=== PATIENT | female | born 1975 | race Caucasian/White ===

== ENCOUNTER 2019-09-24 05:30 | Day surgery (SDC) | payer BC, SELFPAY ==
[~2019-09-24] VITALS: Ht 162.6 cm; Wt 60.3 kg
[2019-09-24] MEDS ORDERED: ONDANSETRON HCL 4 MG/2 ML VIAL IVP PRN ×2 (08:45→10:30)
[2019-09-24] MEDS ORDERED: OXYCODONE/ACETAMINOPHEN 5-325 TABLET PO PRN ×2 (10:30)
[2019-09-24] MEDS ORDERED: HYDROcodone/ACETAMIN 5-325 MG TAB (NORCO/ VICODIN) PO PRN (10:30)
[2019-09-24] MEDS ORDERED: NS 1000 ML IV.SOLN IV ONE (10:51)
[2019-09-24] MEDS ORDERED: fentaNYL CITRATE/PF 100 MCG/2 ML AMP ONE (10:51)
[2019-09-24] MEDS ORDERED: FUROSEMIDE 20 MG/2 ML VIAL ONE (10:51)
[2019-09-24] MEDS ORDERED: LIDOCAINE 2%, 20 ML MDV ONE (10:51)
[2019-09-24] MEDS ORDERED: NS IRRIG SOLN 1000 ML IR ONE (10:51)
[2019-09-24] MEDS ORDERED: BUPIVACAINE /PF 0.25% 30 ML VIAL INJ ONE ×2 (10:51)
[2019-09-24] MEDS ORDERED: WATER FOR IRRIGATION,STERILE 1,000 ML IRRIG.SOLN IR ONE (10:51)
[2019-09-24] MEDS ORDERED: SEVOFLURANE 15 MIN GAS INH ONE (10:51)
[2019-09-24] MEDS ORDERED: ONDANSETRON HCL 4 MG/2 ML VIAL ONE ×2 (10:51→12:49)
[2019-09-24] MEDS ORDERED: ROCURONIUM BROMIDE 10 MG/ML (ZEMURON) ONE (10:51)
[2019-09-24] MEDS ORDERED: CEFAZOLIN 2 GM IVPB PREMIX 50 ML IV ONE (10:51)
[2019-09-24] MEDS ORDERED: PROPOFOL 200MG/ 20ML VIAL (DIPRIVAN) IV ONE (10:51)
[2019-09-24] MEDS ORDERED: MIDAZOLAM HCL 5 MG/ML VIAL (VERSED) IV ONE (10:51)
[2019-09-24] MEDS ORDERED: LR 1,000 ML IV.SOLN IV ONE (10:51)
[2019-09-24] MEDS ORDERED: LIDOCAINE 1% 10 MG/ML, 20 ML MDV ONE (10:51)
[2019-09-24] MEDS ORDERED: SUCCINYLCHOLINE CHLORIDE 20 MG/ML(QUELICIN) ONE (10:51)
[2019-09-24] MEDS: HYDROmorphone 1 MG INJ. 1 MG/ML AMPUL IVP PRN ×2 (11:19→11:34)
[2019-09-24] MEDS ORDERED: HYDROmorphone 1 MG INJ. 1 MG/ML AMPUL ONE (11:36)
[2019-09-24 11:50] VITALS: BP_SYST 123
[2019-09-24] MEDS ORDERED: ONDANSETRON HCL 4 MG/2 ML VIAL IVP ONE (12:30)
[2019-09-24] MEDS ORDERED: HYDROcodone/ACETAMIN 5-325 MG TAB (NORCO/ VICODIN) PO ONE (12:30)
[2019-09-24] MEDS ORDERED: OXYCODONE/ACETAMINOPHEN 5-325 TABLET ONE (12:49)
[2019-09-24] MEDS ORDERED: KETOROLAC TROMETHAMINE 30 MG VIAL IVP ONE (14:00)
== END 2019-09-24 16:15 | disposition home or self-care (01) ==
LOC: SDS 05:30 → SMU 05:30 → EEVIPCON 07:30 → SDS 16:15
PROVIDERS: ATTEND Specialist
DX: N92.0 Excessive and frequent menstruation with regular cycle (principal); D25.2 Subserosal leiomyoma of uterus; Z11.59 Encounter for screening for other viral diseases; R93.89 Abnormal findings on diagnostic imaging of other specified body structures
CPT/HCPCS: 58554; 88307; C1727; J0330; J0690; J1170; J1940; J2001 ×2; J2250; J2405; J2704; J3010; J3490; J7030; J7120; S2900; U0003; E0190